=== PATIENT | female | born 1980 | race Caucasian/White ===

== ENCOUNTER 2019-07-02 18:51 | Emergency (ER) | payer OTHER ==
--- NOTE | 2019-07-02 19:15 | PDOC ---
Rapid Medical Evaluation Time Seen by Provider: 07/02/19 19:14 Medical Evaluation: 07/02/19 19:14 I performed a brief in-person evaluation of this patient. Healthy 38-year-old female with 3 days of throat pain and fevers. Took ibuprofen prior to arrival. Able to swallow, no change in voice, no difficulty breathing. Pertinent physical exam findings: Tonsils enlarged, erythematous with white exudate, L>R. Cervical adenopathy No drooling, stridor, or hot potato voice I have ordered the following: Rapid strep Patient to proceed to the ED for further evaluation. Discharge Disposition - Diagnosis Tonsillitis - Referrals - Patient Instructions - Post Discharge Activity
[2019-07-02 19:18] VITALS: BP 91/62; PULSE 105; TEMP 98.2; BMI 21.3
[2019-07-02] MEDS ORDERED: DEXAMETHASONE LIQUID 0.5 MG/5 ML PO ONE (21:25)
[2019-07-02] MEDS ORDERED: DEXAMETHASONE SOD PHOSPHATE 10 MG/1 ML VIAL ONE (21:29)
--- NOTE | 2019-07-02 21:31 | PDOC ---
History of Present Illness - General Chief Complaint: Cold Symptoms Stated Complaint: SORE THROAT Time Seen by Provider: 07/02/19 19:14 History Source: Patient Exam Limitations: Clinical Condition - History of Present Illness Initial Comments: 07/02/19 21:26 Patient with no significant past medical history present with complaint of 3- day history of sore throat, painful to swallow and white patches in the throat. Denies fever, chills, cough, body aches, stomach pains. Patient did not take anything for symptoms Is this a multiple visit Asthma Patient?: No Timing/Duration: other (3 days) Past History - Past Medical History Allergies/Adverse Reactions: Allergies Allergy/AdvReac Type Severity Reaction Status Date / Time No Known Allergies Allergy Verified 07/02/19 19:18 Home Medications: Ambulatory Orders Amox-Tr/K Cl [Augmentin - 875Mg Tablet] 1 tab PO BID #14 tablet 07/02/19 COPD: No Disorders: No Lung CA: No - Surgical History Appendectomy: No Gastric Stapling: No - Immunization History Immunization Up to Date: No - Psycho Social/Smoking Cessation Hx Smoking History: Never smoked Have you smoked in the past 12 months: No Information on smoking cessation initiated: No Hx Alcohol Use: No Drug/Substance Use Hx: No Review of Systems - Review of Systems Able to Perform ROS?: Yes Is the patient limited Green[place]ic proficient: No Constitutional: No: Chills, Fever, Malaise HEENTM: Yes: Symptoms Reported, See HPI, Throat Pain, Difficulty Swallowing. No : Eye Pain, Blurred Vision, Tearing, Recent change in vision, Double Vision, Cataracts, Ear Pain, Ocular Prothesis, Ear Discharge, Nose Pain, Nose Congestion , Tinnitus, Nose Bleeding, Hearing Loss, Throat Swelling, Mouth Pain, Dental Problems, Mouth Swelling, Other Respiratory: No: Symptoms reported, See HPI, Cough, Orthopnea, Shortness of Breath, SOB with Exertion, SOB at Rest, Stridor, Wheezing, Productive cough, Hemoptysis, Other Cardiac (ROS): No: Symptoms Reported, See HPI, Chest Pain, Edema, Irregular Heart Rate, Lightheadedness, Palpitations, Syncope, Chest Tightness, Other ABD/GI: No: Symptoms Reported, See HPI, Constipated, Diarrhea, Nausea, Vomiting , Abdominal cramping Musculoskeletal: No: Symptoms Reported Integumentary: No: Symptoms Reported Neurological: No: Symptoms reported All Other Systems: Reviewed and Negative *Physical Exam - Vital Signs Last Vital Signs Temp Pulse Resp BP Pulse Ox 98.2 F 105 H 18 91/62 99 07/02/19 19:16 07/02/19 19:16 07/02/19 19:16 07/02/19 19:16 07/02/19 19:16 - Physical Exam 07/02/19 21:29 GENERAL: Well developed, well nourished. Awake and alert. No acute distress. HEENT: Moderately enlarged bilateral erythematous tonsils. White exudate in left tonsils. Oropharynx patent. No peritonsillar abscess on exam. Normocephalic, atraumatic. PERRLA, EOMI. No conjunctival pallor. Sclera are non- icteric. Moist mucous membranes. NECK: Supple. Full ROM. CARDIOVASCULAR: Regular rate and rhythm. No murmurs, rubs, or gallops. PULMONARY: No evidence of respiratory distress. Lungs clear to auscultation bilaterally. No wheezing, rales or rhonchi. ABDOMINAL: Soft. Non-tender. Non-distended. No rebound or guarding. No organomegaly. Normoactive bowel sounds. MUSCULOSKELETAL Normal range of motion at all joints. SKIN: Warm and dry. Normal capillary refill. No rashes. No jaundice. NEUROLOGICAL: Alert, awake, appropriate. Gait is normal without ataxia. PSYCHIATRIC: Cooperative. Good eye contact. Appropriate mood General Appearance: Yes: Nourished, Appropriately Dressed, Mild Distress Medical Decision Making - Medical Decision Making 07/02/19 21:27 Patient with no significant past medical history present with complaint of 3- day history of sore throat, painful to swallow and white patches in the throat. Denies fever, chills, cough, body aches, stomach pains. Patient did not take anything for symptoms Exam significant for moderate enlarged bilateral tonsils with erythema and white exudate in left tonsils. No peritonsillar abscess on exam. Rapid strep positive for strep. Decadron 10 mg p.o. ordered for tonsillitis. Patient be discharged home on Augmentin antibiotics twice daily for a week with advised to take Motrin as needed for pain and increase fluid intake with ENT follow-up as needed Discharge - Discharge Information Problems reviewed: Yes Clinical Impression/Diagnosis: Tonsillitis, Strep pharyngitis Condition: Stable Disposition: HOME - Admission No - Additional Discharge Information Prescriptions: Amox-Tr/K Cl [Augmentin - 875Mg Tablet] 1 tab PO BID #14 tablet - Follow up/Referral Referrals: Logan Nichols MD [Staff Physician] - - Patient Discharge Instructions Patient Printed Discharge Instructions: DI for Strep Throat Additional Instructions: Your strep test is positive. Take prescribed antibiotics and finish it. You can take Motrin as needed for pain. Follow-up referred ENT if no improvement in 4 days - Post Discharge Activity
== END 2019-07-02 21:39 | disposition home or self-care (01) ==
LOC: JERFT 18:51
DX: J02.0 Streptococcal pharyngitis (principal); B95.0 Streptococcus, group A, as the cause of diseases classified elsewhere
CPT/HCPCS: 87880; 99281-25

== ENCOUNTER 2022-05-02 13:57 | Emergency (ER) | payer OTHER ==
[2022-05-02 14:21] VITALS: TEMP 98.1; BMI 24.7
[2022-05-02] MEDS ORDERED: PHENAZOPYRIDINE HCL 100 MG TABLET (FP) PO ONE (14:42)
[2022-05-02] MEDS ORDERED: LACTATED RINGERS SOLUTION 1000 ML INFUS.BAG IV ONE (14:56)
[2022-05-02] MEDS ORDERED: MAGNESIUM CITRATE 300 ML BOTTLE PO ONE (14:56)
[2022-05-02] MEDS ORDERED: PHENAZOPYRIDINE HCL 100 MG TABLET (FP) ONE (15:28)
[2022-05-02] MEDS ORDERED: SENNOSIDES 8.6MG TABLET (FP) PO PRN (15:35)
[2022-05-02] MEDS ORDERED: POLYETHYLENE GLYCOL (HEALTHYLAX) 3350 17 GM PACKET PO SCH (15:45)
[2022-05-02 15:48] LABS: BASO % 0.2 % (0-2.0); EOS % 0.1 % (0-4.5); HEMATOCRIT 37.7 % (32.4-45.2); HEMOGLOBIN 12.1 GM/dL (10.7-15.3); LYMPH % 8.9 % (8-40); MCH 30.5 pg (25.7-33.7); MEAN CELL VOLUME 95.3 fl (80-96); MEAN PLT VOLUME 10.6 fl (7.5-11.1); MONO % 9.9 % (3.8-10.2); NEUT % 80.9 % (42.8-82.8); PLATELET COUNT 208 10^3/uL (134-434); RBC 3.96 M/mm3 (3.60-5.2); RDW 12.8 % (11.6-15.6); WHITE BLOOD COUNT 19.6 K/mm3 (4.0-10.0)
[2022-05-02 15:49] LABS: PH,URINE 5.5 (5.0-8.0); URINE APPEARANCE CLEAR; URINE BILIRUBIN NEGATIVE (NEGATIVE); URINE COLOR YELLOW; URINE GLUCOSE (UA) NEGATIVE (NEGATIVE); URINE KETONE 3+ (NEGATIVE); URINE LEUK ESTERASE NEGATIVE (NEGATIVE); URINE NITRITE NEGATIVE (NEGATIVE); URINE PROTEIN NEGATIVE (NEGATIVE); URINE UROBILINOGEN 0.2 mg/dL (0.2-1.0)
[2022-05-02] MEDS ORDERED: POLYETHYLENE GLYCOL (HEALTHYLAX) 3350 17 GM PACKET ONE (15:53)
[2022-05-02] MEDS ORDERED: SENNOSIDES 8.6MG TABLET (FP) PO ONE (15:53)
[2022-05-02 16:21] LABS: CALCIUM 9.6 mg/dL (8.5-10.1)
[2022-05-02 16:22] LABS: ALBUMIN 3.8 g/dl (3.4-5.0); BLOOD UREA NITROGEN 8.3 mg/dL (7-18)
[2022-05-02 16:25] LABS: CREATININE 0.6 mg/dL (0.55-1.3)
[2022-05-02 16:26] LABS: BILIRUBIN,TOTAL 0.6 mg/dL (0.2-1); TOT PROT 7.6 g/dl (6.4-8.2)
[2022-05-02] MEDS ORDERED: ACETAMINOPHEN 1000 MG/100 ML BAG IVPB ONE (16:57)
[2022-05-02] MEDS ORDERED: SODIUM CHLORIDE 0.9% 1000 ML INFUS.BAG IV ONE (17:02)
[2022-05-02] MEDS ORDERED: ACETAMINOPHEN INJECTION 100 ML IVPB ONE (18:49)
[2022-05-02 21:09] VITALS: BP 112/60; PULSE 86; RESP 18
== END 2022-05-02 21:09 | disposition home or self-care (01) ==
LOC: JER 13:57
PROC: 3E0333Z Introduction of Anti-inflammatory into Peripheral Vein, Percutaneous Approach (ICD-10-PCS; principal; 2022-05-02)
DX: R30.0 Dysuria (principal)
CPT/HCPCS: 36415; 74018-TC-FY; 74177-TC; 80053; 81003; 84703; 85025; 87086; 99285-25; Q9967